=== PATIENT | male | born 1945 | race Caucasian/White ===

== ENCOUNTER 2023-07-03 14:11 | Inpatient (IN) | payer MEDICARE, BC ==
[~2023-07-03 14:11] MED LIST: Iopamidol 300 61% 100 ML VIAL FS ONE
[2023-07-03] MEDS ORDERED: Acetaminophen 500 MG TAB ONE (15:07)
[2023-07-03] MEDS ORDERED: Ondansetron PF 4 MG/2 ML Vial ONE ×2 (15:07→18:58)
[2023-07-03 15:33] LABS: #Basophils 0.1 10x3/uL (0.0-0.2); #Eosinphils 0.2 10x3/uL (0.0-0.5); #Monocytes 0.1 10x3/uL (0.0-1.1); #Neutrophils 6.1 10x3/uL (1.5-8.4); %Basophils 0.7 % (0.0-2.0); %Eosinophils 1.8 % (0.0-6.0); %Lymphocytes 29.3 % (18.0-47.0); %Monocytes 1.1 % (0.0-10.0); %Neutrophils 66.7 % (40.0-75.0); Hematocrit 47.3 % (38.8-50.0); Hemoglobin 15.9 g/dL (13.5-17.5); Mean Corpuscular HGB CONC 33.6 g/dL (32.0-36.0); Mean Corpuscular Volume 104.2 fl (81.2-95.1); RBC Distribution Width 15.1 % (11.5-14.5); Red Blood Cell (RBC) Count 4.54 10x6/uL (4.32-5.72); White Blood Cell (WBC) Count 9.1 10x3/uL (3.5-10.5)
[2023-07-03 15:34] LABS: Platelet Count 110 10x3/uL (150-450)
[2023-07-03 15:37] LABS: Mean Platelet Volume 10.4 fl (7.4-10.4)
[2023-07-03] MEDS ORDERED: Cefepime 1 GM VIAL ONE (15:53)
[2023-07-03 15:54] LABS: ALT (SGPT) 29 U/L (8-55); AST (SGOT) 46 U/L (5-34); Albumin 4.6 g/dL (3.4-4.8); Alkaline Phosphatase 96 U/L (40-110); Anion Gap 23 mmol/L (10-20); BUN (Urea Nitrogen) 11 mg/dL (8.4-25.7); Bilirubin, Total 1.9 mg/dL (0.2-1.2); Calc. Creatinine Clearance 0 mL/min (70-130); Calcium 10.1 mg/dL (7.8-10.44); Carbon Dioxide 20 mmol/L (23-31); Chloride 102 mmol/L (98-107); Estimated GFR 51; Globulin 3.3 g/dL (2.4-3.5); Glucose 125 mg/dL (83-110); Lipase 21 U/L (8-78); Potassium 4.4 mmol/L (3.5-5.1); Protein, Total 7.9 g/dL (5.8-8.1); Sodium 141 mmol/L (136-145)
[2023-07-03] MEDS ORDERED: Cefepime 2 GM VIAL ONE (15:55)
[2023-07-03 16:00] LABS: Platelet Adequacy Comment Platelets Decreased; RBC Morph Comment Within Normal Limits
[2023-07-03 16:46] LABS: Bilirubin Neg (Negative); Blood, Urine 25 (Negative); Clarity Clear (Clear); Glucose, Urine (Dipstick) Normal (Negative); Ketone, Urine Negative (Negative); Leukocyte 500 (Negative); Nitrite Negative (Negative); Protein, Urine (Dipstick) Negative (Neg-Trace); Urobilinogen Normal mg/dL (Less than 2)
[2023-07-03] MEDS ORDERED: Acetaminophen 325 MG TAB PO PRN (16:53)
[2023-07-03] MEDS ORDERED: Bisacodyl 5 MG TAB PO PRN (16:53)
[2023-07-03] MEDS ORDERED: Guaifenesin DM 100-10/5 ML UDCUP PO PRN (16:53)
[2023-07-03] MEDS ORDERED: Senokot S 8.6-50 MG TAB PO PRN (16:53)
[2023-07-03 16:58] LABS: Bacteria/HPF 2+ HPF (None Seen); CAUTI Indications for Culture Dysuria,urgency,freq; RBC/HPF Greater than 50 HPF (0-3); Squamous Epithelial 0-3 HPF (0-3)
[2023-07-03 17:00] LABS: Urine Culture Reflex No No
[2023-07-03] MEDS ORDERED: chlordiazePOXIDE HCl 5 MG CAP PO PRN (17:45)
[2023-07-03 18:34] LABS: Lactic Acid 1.2 mmol/L (0.5-2.2)
[2023-07-03] MEDS ORDERED: PROPOFOL 20 ML ONE (18:54)
[2023-07-03] MEDS ORDERED: Midazolam HCl 2 mg/2 ml Vial ONE (18:54)
[2023-07-03] MEDS ORDERED: fentaNYL 50 mcg/mL 1 mL Vial ONE (18:54)
[2023-07-03] MEDS ORDERED: Iopamidol 30 ML ONE (18:58)
[2023-07-03] MEDS ORDERED: Lidocaine 1% PF 5 ML VIAL ONE (18:58)
[2023-07-03] MEDS ORDERED: Dexamethasone 20 MG/5 ML VIAL ONE (18:58)
[2023-07-03] MEDS ORDERED: PHENYLEPHRINE-NS 100 MCG/ML 10 ML SYRINGE ONE (19:46)
[2023-07-03 22:40] VITALS: BMI 35.6
[2023-07-03] MEDS ORDERED: Famotidine/PF 20 mg/2ml Vial SLOW IVP SCH (23:00)
[2023-07-03] MEDS: Sodium Chloride 0.9% 1,000 ML IV SCH (23:51)
[2023-07-03] MEDS: HYDROcodone/Acetaminophen 5/325 mg Tablet PO PRN (23:57)
[2023-07-04 04:00] LABS: #Eosinphils 0.1 10x3/uL (0.0-0.5); #Monocytes 0.4 10x3/uL (0.0-1.1); %Basophils 0.2 % (0.0-2.0); %Eosinophils 0.5 % (0.0-6.0); %Lymphocytes 6.8 % (18.0-47.0); %Monocytes 3.4 % (0.0-10.0); %Neutrophils 88.5 % (40.0-75.0); Hematocrit 39.5 % (38.8-50.0); Hemoglobin 13.6 g/dL (13.5-17.5); Mean Corpuscular HGB CONC 34.4 g/dL (32.0-36.0); Mean Corpuscular Hemoglobin 35.1 pg (27.0-33.0); Mean Corpuscular Volume 101.8 fl (81.2-95.1); Mean Platelet Volume 10.5 fl (7.4-10.4); Platelet Count 85 10x3/uL (150-450); Red Blood Cell (RBC) Count 3.88 10x6/uL (4.32-5.72); White Blood Cell (WBC) Count 12.4 10x3/uL (3.5-10.5)
[2023-07-04 04:06] LABS: ALT (SGPT) 26 U/L (8-55); AST (SGOT) 41 U/L (5-34); Albumin 3.4 g/dL (3.4-4.8); Alkaline Phosphatase 79 U/L (40-110); Anion Gap 15 mmol/L (10-20); BUN (Urea Nitrogen) 13 mg/dL (8.4-25.7); Bilirubin, Total 1.4 mg/dL (0.2-1.2); Calc. Creatinine Clearance 84 mL/min (70-130); Calcium 8.1 mg/dL (7.8-10.44); Carbon Dioxide 17 mmol/L (23-31); Chloride 110 mmol/L (98-107); Estimated GFR 57; Globulin 2.5 g/dL (2.4-3.5); Glucose 189 mg/dL (83-110); Potassium 4.2 mmol/L (3.5-5.1); Protein, Total 5.9 g/dL (5.8-8.1); Sodium 138 mmol/L (136-145)
[2023-07-04] MEDS: Cefepime 2 GM in Sodium Chloride 0.9% 100 ML IVPB SCH ×2 (05:05→16:35)
[2023-07-04] MEDS: HYDROcodone/Acetaminophen 5/325 mg Tablet PO PRN ×2 (05:11→16:34)
[2023-07-04] MEDS: Sodium Chloride 0.9% 1,000 ML IV SCH ×3 (05:25→13:54)
[2023-07-04] MEDS: Thiamine 100 MG TAB PO SCH (09:24)
[2023-07-04] MEDS: Folic Acid 1 MG TAB PO SCH (09:24)
[2023-07-04] MEDS: Ketorolac Tromethamine 30 MG/ML VIAL IVP PRN ×2 (09:24→17:50)
[2023-07-04] MEDS: Famotidine/PF 20 mg/2ml Vial SLOW IVP SCH ×2 (09:27→22:13)
[2023-07-05] MEDS: Sodium Chloride 0.9% 1,000 ML IV SCH ×2 (01:18→09:24)
[2023-07-05] MEDS: Cefepime 2 GM in Sodium Chloride 0.9% 100 ML IVPB SCH ×2 (04:36→16:28)
[2023-07-05] MEDS: Folic Acid 1 MG TAB PO SCH (09:14)
[2023-07-05] MEDS: Famotidine/PF 20 mg/2ml Vial SLOW IVP SCH ×2 (09:14→20:04)
[2023-07-05] MEDS: Thiamine 100 MG TAB PO SCH (09:14)
[2023-07-05] MEDS: HYDROcodone/Acetaminophen 5/325 mg Tablet PO PRN ×2 (09:29→20:04)
[2023-07-06] MEDS: Sodium Chloride 0.9% 1,000 ML IV SCH (01:42)
[2023-07-06] MEDS: Cefepime 2 GM in Sodium Chloride 0.9% 100 ML IVPB SCH ×2 (03:49→17:00)
[2023-07-06] MEDS: Ketorolac Tromethamine 30 MG/ML VIAL IVP PRN (05:25)
[2023-07-06] MEDS: Famotidine/PF 20 mg/2ml Vial SLOW IVP SCH ×2 (09:18→20:53)
[2023-07-06] MEDS: Folic Acid 1 MG TAB PO SCH (09:19)
[2023-07-06] MEDS: Thiamine 100 MG TAB PO SCH (09:19)
[2023-07-06] MEDS: HYDROcodone/Acetaminophen 5/325 mg Tablet PO PRN (20:53)
[2023-07-07 05:24] LABS: #Basophils 0.1 10x3/uL (0.0-0.2); #Eosinphils 0.4 10x3/uL (0.0-0.5); #Monocytes 0.7 10x3/uL (0.0-1.1); #Neutrophils 3.3 10x3/uL (1.5-8.4); %Basophils 0.7 % (0.0-2.0); %Eosinophils 6.2 % (0.0-6.0); %Lymphocytes 35.6 % (18.0-47.0); %Monocytes 9.9 % (0.0-10.0); %Neutrophils 46.9 % (40.0-75.0); Hematocrit 42.6 % (38.8-50.0); Hemoglobin 14.6 g/dL (13.5-17.5); Mean Corpuscular HGB CONC 34.3 g/dL (32.0-36.0); Mean Corpuscular Hemoglobin 35.2 pg (27.0-33.0); Mean Corpuscular Volume 102.7 fl (81.2-95.1); Mean Platelet Volume 10.5 fl (7.4-10.4); Platelet Count 113 10x3/uL (150-450); RBC Distribution Width 15.3 % (11.5-14.5); Red Blood Cell (RBC) Count 4.15 10x6/uL (4.32-5.72); White Blood Cell (WBC) Count 7.1 10x3/uL (3.5-10.5)
[2023-07-07 05:31] LABS: Anion Gap 14 mmol/L (10-20); BUN (Urea Nitrogen) 14 mg/dL (8.4-25.7); Calc. Creatinine Clearance 97 mL/min (70-130); Calcium 8.8 mg/dL (7.8-10.44); Carbon Dioxide 21 mmol/L (23-31); Chloride 113 mmol/L (98-107); Estimated GFR 67; Glucose 90 mg/dL (83-110); Potassium 3.7 mmol/L (3.5-5.1); Sodium 144 mmol/L (136-145)
[2023-07-07] MEDS: Cefepime 2 GM in Sodium Chloride 0.9% 100 ML IVPB SCH ×2 (05:40→16:41)
[2023-07-07 05:45] LABS: Platelet Adequacy Comment Appears Decreased; RBC Morph Comment Within Normal Limits
[2023-07-07 05:51] LABS: CRP (Inflammatory) 2.41 mg/dL (= or < 0.5)
[2023-07-07] MEDS: Famotidine/PF 20 mg/2ml Vial SLOW IVP SCH ×2 (11:27→22:43)
[2023-07-07] MEDS: Folic Acid 1 MG TAB PO SCH (11:28)
[2023-07-07] MEDS: Thiamine 100 MG TAB PO SCH (11:29)
[2023-07-08] MEDS: Cefepime 2 GM in Sodium Chloride 0.9% 100 ML IVPB SCH ×2 (06:02→14:56)
[2023-07-08] MEDS ORDERED: hydrALAZINE 20 MG/ML VIAL SLOW IVP PRN (07:23)
[2023-07-08] MEDS ORDERED: Iopamidol 0 ML ONE (08:54)
[2023-07-08] MEDS: Thiamine 100 MG TAB PO SCH (09:00)
[2023-07-08] MEDS: Famotidine/PF 20 mg/2ml Vial SLOW IVP SCH (09:00)
[2023-07-08] MEDS: Folic Acid 1 MG TAB PO SCH (09:00)
[2023-07-08] MEDS ORDERED: Lisinopril 10 MG TAB PO SCH (09:00)
[2023-07-08] MEDS ORDERED: Aspirin 81 mg Enteric Coated Tablet PO SCH (09:00)
[2023-07-08] MEDS ORDERED: PROPOFOL 20 ML ONE (12:04)
[2023-07-08] MEDS ORDERED: Lidocaine 1% PF 5 ML VIAL ONE (12:04)
[2023-07-08] MEDS ORDERED: ePHEDrine Sulfate 50 MG/10 ML VIAL ONE (12:06)
[2023-07-08] MEDS ORDERED: Ondansetron PF 4 MG/2 ML Vial ONE (12:06)
[2023-07-08] MEDS ORDERED: Glycopyrrolate 0.2 MG/ML 5 ML SYRINGE ONE (12:43)
[2023-07-08] MEDS ORDERED: fentaNYL 50 mcg/mL 1 mL Vial ONE (12:43)
[2023-07-08 12:58] VITALS: BP 183/87; TEMP 97.8
== END 2023-07-08 16:25 | disposition home or self-care (01) | DRG 854 ==
LOC: EEVIPCON 14:11 → CSHERS 14:11 → CSHTELE 22:16 → OBSVTOIN 22:16
PROVIDERS: ADMIT Student in an Organized Health Care Education/Training Program; ATTEND Hospitalist
PROC: 0T778DZ Dilation of Left Ureter with Intraluminal Device, Via Natural or Artificial Opening Endoscopic (ICD-10-PCS; principal; 2023-07-03)
PROC: 0T778DZ Dilation of Left Ureter with Intraluminal Device, Via Natural or Artificial Opening Endoscopic (ICD-10-PCS; 2023-07-08)
PROC: 0TP98DZ Removal of Intraluminal Device from Ureter, Via Natural or Artificial Opening Endoscopic (ICD-10-PCS; 2023-07-08)
PROC: 0TC78ZZ Extirpation of Matter from Left Ureter, Via Natural or Artificial Opening Endoscopic (ICD-10-PCS; 2023-07-08)
DX: A41.9 Sepsis, unspecified organism (principal); N13.6 Pyonephrosis; R65.20 Severe sepsis without septic shock; E78.00 Pure hypercholesterolemia, unspecified; I10 Essential (primary) hypertension; Z79.899 Other long term (current) drug therapy; Z85.46 Personal history of malignant neoplasm of prostate; Z90.79 Acquired absence of other genital organ(s); Z87.891 Personal history of nicotine dependence; Z82.49 Family history of ischemic heart disease and other diseases of the circulatory system; Z79.82 Long term (current) use of aspirin; Z98.41 Cataract extraction status, right eye; Z98.42 Cataract extraction status, left eye
CPT/HCPCS: 36415; 36416; 51600; 74177; 74430; 80048; 80053; 81001; 82365; 83605; 83690; 84145; 84484; 85025; 86140; 87040; 87077; 87086; 87149; 87186; 88300; 93005; 96374; 96375; C2617; C2625; J0692; J1100; J1650; J1885; J2250; J2405; J2704; J3010; J3490; J7050; Q9967; S0028

== ENCOUNTER 2025-07-11 13:31 | Outpatient (CLI) | payer MEDICARE ==
[2025-07-11 14:36] LABS: Estimated GFR - POC 56.0
== END 2025-07-11 13:32 | disposition home or self-care (01) ==
LOC: CSHCT 13:31
PROVIDERS: ATTEND Family Medicine Sports Medicine
DX: R11.2 Nausea with vomiting, unspecified (principal); K63.9 Disease of intestine, unspecified
CPT/HCPCS: 74177; 82565

== ENCOUNTER 2025-07-18 12:13 | Outpatient (CLI) | payer MEDICARE | END 2025-07-18 12:14 | disposition home or self-care (01) | LOC: CSHRAD 12:13 | PROVIDERS: ATTEND Family Medicine Sports Medicine | DX: Z11.1 Encounter for screening for respiratory tuberculosis (principal) | CPT/HCPCS: 71046 ==